=== PATIENT | female | born 1965 | race Caucasian/White ===

== ENCOUNTER → 2017-06-01 | Outpatient (CLI) | payer BC ==
[~2017-06-01] MED LIST: GLUCOPHAGE XR500 M1 PO; PERCOCET 325 MG1 TA2 PO; PHENERGAN 25 TA25 MG PO
== END ==
LOC: MC.RAD 13:51
DX: Z12.31 Encounter for screening mammogram for malignant neoplasm of breast (principal)

== ENCOUNTER 2017-10-01 15:02 | Emergency (ER) | payer BC ==
[~2017-10-01] VITALS: Ht 162.6 cm; Wt 109.1 kg
[2017-10-01 15:10] VITALS: TEMP 99.3
[2017-10-01 15:53] LABS: COLLECTION METHOD CLEAN CATCH
[2017-10-01 16:00] LABS: BASO % 0.3 % (0.0-2.0); EOS % 0.1 % (0-4.0); GRAN # 11.2 (1.4-6.5); GRAN % 81.1 % (42.2-75.2); HEMATOCRIT 48.3 % (37.0-47.0); HEMOGLOBIN 16.2 g/dl (12.5-16.0); LYMPH # 1.9 (1.2-3.4); LYMPH % 13.7 % (20.0-51.0); MEAN CELL VOLUME 88 fl (80.0-100.0); MEAN CORPUSCULAR HEMOGLOBIN 30 pg (27.0-31.0); MEAN CORPUSCULAR HGB CONC 34 g/dl (33.0-37.0); MEAN PLATELET VOLUME 9.7 fl (7.4-10.4); MONO # 0.6 (0.1-0.6); MONO % 4.4 % (1.7-9.3); PLATELET COUNT 394 K/mm3 (130-400); RED BLOOD COUNT 5.49 M/mm3 (4.10-5.30); WHITE BLOOD COUNT 13.7 K/mm3 (4.8-10.8)
[2017-10-01 16:10] LABS: ALBUMIN 4.7 gm/dL (3.5-5.0); BILIRUBIN,TOTAL 0.8 mg/dL (0.0-1.0); C-REACTIVE PROTEIN 0.7 mg/dL (0.0-0.9); CALCIUM 9.6 mg/dL (8.4-10.2); CREATININE, serum 0.8 mg/dL (0.52-1.25); POTASSIUM 3.6 mmol/L (3.4-5.0); TOTAL PROTEIN 7.9 gm/dL (6.4-8.2)
[2017-10-01 16:22] LABS: PH 5 (5-8); SQUAMOUS EPITHELIAL 0-2 /hpf; URINE APPEARANCE Clear; URINE BACTERIA Rare /hpf; URINE BILIRUBIN Negative (NEGATIVE); URINE BLOOD 2+ (NEGATIVE); URINE COLOR Yellow; URINE GLUCOSE Negative (NEGATIVE); URINE KETONE Negative (NEGATIVE); URINE LEUKOCYTE ESTERASE Negative (NEGATIVE); URINE PROTEIN(semi-quant) Negative (NEGATIVE); URINE RBC 0-2 /hpf; URINE UROBILINOGEN Negative (NEGATIVE); URINE WBC 0-2 /hpf
[2017-10-01] MEDS ORDERED: LEVAQUIN 5500 MG/TA1 PO ×2 (16:33→16:53)
[2017-10-01] MEDS ORDERED: ZOFRAN ODT4 MG PO (16:53)
[2017-10-01] MEDS ORDERED: FLAGYL500 MG PO (16:53)
[2017-10-01] MEDS ORDERED: PERCOCET 325 MG1 TA2 PO (16:53)
[2017-10-01 17:08] VITALS: BP 131/76; PULSE 84
== END 2017-10-01 17:09 | disposition home or self-care (01) ==
LOC: COL.ER 15:02
PROVIDERS: Nurse Practitioner
DX: R10.9 Unspecified abdominal pain (principal); Z90.710 Acquired absence of both cervix and uterus; Z87.448 Personal history of other diseases of urinary system
CPT/HCPCS: J1170; J2405; J7030

== ENCOUNTER → 2018-08-03 | Outpatient (CLI) | payer BC ==
[~2018-08-03] VITALS: Ht 157.5 cm; Wt 114.1 kg
[~2018-08-03] MED LIST changes: +FLAGYL500 MG PO; +LEVAQUIN 5500 MG/TA1 PO; +MOTRIN 800800 MG/TAB PO; +TYLENOL 500MG500 MG PO; +XIIDRA1 EACH OP; +ZANTAC 150MG T150 MG PO; +ZOFRAN ODT4 MG PO
[2018-08-03 16:31] VITALS: BP 134/94; PULSE 84
== END ==
LOC: LIGHT 09:14
DX: G47.33 Obstructive sleep apnea (adult) (pediatric) (principal); K21.9 Gastro-esophageal reflux disease without esophagitis; F41.1 Generalized anxiety disorder; E66.01 Morbid (severe) obesity due to excess calories; Z68.42 Body mass index [BMI] 45.0-49.9, adult; Z71.3 Dietary counseling and surveillance
CPT/HCPCS: G0463

== ENCOUNTER → 2018-08-07 | Outpatient (CLI) | payer BC | LOC: LIGHT 07:34 | DX: G47.33 Obstructive sleep apnea (adult) (pediatric) (principal); K21.9 Gastro-esophageal reflux disease without esophagitis; F41.9 Anxiety disorder, unspecified; E66.01 Morbid (severe) obesity due to excess calories; Z68.42 Body mass index [BMI] 45.0-49.9, adult; Z71.3 Dietary counseling and surveillance ==

== ENCOUNTER → 2018-08-23 | Outpatient (CLI) | payer BC | LOC: MC.RAD 12:51 | DX: Z12.31 Encounter for screening mammogram for malignant neoplasm of breast (principal) ==

== ENCOUNTER 2018-08-29 10:30 | Outpatient (RCR) | payer BC ==
[2018-09-07] MEDS ORDERED: GLUCOPHAGE XR500 M1 PO (16:08)
[2018-09-07] MEDS ORDERED: LEVAQUIN 5500 MG/TA1 PO (16:09)
[2018-09-07] MEDS ORDERED: CULTURELLE CAP1 EAC1 PO (16:11)
== END 2018-10-10 | disposition home or self-care (01) ==
LOC: WSPT
DX: M72.2 Plantar fascial fibromatosis (principal)

== ENCOUNTER → 2018-09-05 | Outpatient (CLI) | payer BC | LOC: LIGHT 09:57 | DX: G89.29 Other chronic pain (principal); K21.9 Gastro-esophageal reflux disease without esophagitis; F41.9 Anxiety disorder, unspecified; E66.01 Morbid (severe) obesity due to excess calories; Z68.42 Body mass index [BMI] 45.0-49.9, adult; Z71.3 Dietary counseling and surveillance ==

== ENCOUNTER → 2018-10-05 | Outpatient (CLI) | payer BC ==
[~2018-10-05] VITALS: Ht 157.5 cm; Wt 112.0 kg
[~2018-10-05] MED LIST changes: +CULTURELLE CAP1 EAC1 PO
[2018-10-05 16:48] VITALS: BP 122/86; PULSE 80
== END ==
LOC: LIGHT 10:29
DX: G47.33 Obstructive sleep apnea (adult) (pediatric) (principal); K21.9 Gastro-esophageal reflux disease without esophagitis; F41.1 Generalized anxiety disorder; E66.01 Morbid (severe) obesity due to excess calories; Z68.42 Body mass index [BMI] 45.0-49.9, adult; Z71.3 Dietary counseling and surveillance
CPT/HCPCS: G0463

== ENCOUNTER 2018-11-09 09:45 | Outpatient (RCR) | payer BC | END 2018-12-12 | disposition home or self-care (01) | LOC: WSPT | DX: M72.2 Plantar fascial fibromatosis (principal) ==

== ENCOUNTER → 2018-12-21 | Outpatient (CLI) | payer BC ==
[~2018-12-21] VITALS: Ht 157.5 cm; Wt 113.4 kg
[~2018-12-21] MED LIST changes: +PHENTERMINE15 MG PO
[2018-12-21 09:28] VITALS: BP 128/96; PULSE 64
== END ==
LOC: LIGHT 11-16 16:15
DX: G47.33 Obstructive sleep apnea (adult) (pediatric) (principal); K21.9 Gastro-esophageal reflux disease without esophagitis; F41.1 Generalized anxiety disorder; E66.01 Morbid (severe) obesity due to excess calories; Z68.42 Body mass index [BMI] 45.0-49.9, adult; Z71.3 Dietary counseling and surveillance
CPT/HCPCS: G0463

== ENCOUNTER → 2019-01-18 | Outpatient (CLI) | payer BC ==
[~2019-01-18] VITALS: Ht 157.5 cm; Wt 112.0 kg
[~2019-01-18] MED LIST changes: +BENTYL 10MG10 MG/CAP PO; +FASTIN30 MG PO; -PHENTERMINE15 MG PO
[2019-01-18 10:40] VITALS: BP 122/86; PULSE 60
== END ==
LOC: LIGHT 10:14
DX: G47.33 Obstructive sleep apnea (adult) (pediatric) (principal); K21.9 Gastro-esophageal reflux disease without esophagitis; F41.1 Generalized anxiety disorder; E66.01 Morbid (severe) obesity due to excess calories; Z68.45 Body mass index [BMI] 70 or greater, adult; Z71.3 Dietary counseling and surveillance
CPT/HCPCS: G0463

== ENCOUNTER → 2019-03-01 | Outpatient (CLI) | payer BC ==
[~2019-03-01] VITALS: Ht 157.5 cm; Wt 111.1 kg
[2019-03-01 10:31] VITALS: BP 110/80; PULSE 68
== END ==
LOC: LIGHT 10:26
DX: G47.33 Obstructive sleep apnea (adult) (pediatric) (principal); K21.9 Gastro-esophageal reflux disease without esophagitis; F41.1 Generalized anxiety disorder; E66.01 Morbid (severe) obesity due to excess calories; Z68.41 Body mass index [BMI] 40.0-44.9, adult; Z71.3 Dietary counseling and surveillance
CPT/HCPCS: G0463

== ENCOUNTER → 2019-04-05 | Outpatient (CLI) | payer BC ==
[~2019-04-05] VITALS: Ht 157.5 cm; Wt 110.0 kg
[2019-04-05 09:08] VITALS: BP 126/76; PULSE 60
== END ==
LOC: LIGHT 09:02
DX: G47.33 Obstructive sleep apnea (adult) (pediatric) (principal); K21.9 Gastro-esophageal reflux disease without esophagitis; F41.1 Generalized anxiety disorder; E66.01 Morbid (severe) obesity due to excess calories; Z68.42 Body mass index [BMI] 45.0-49.9, adult; Z71.3 Dietary counseling and surveillance
CPT/HCPCS: G0463

== ENCOUNTER → 2019-06-28 | Outpatient (CLI) | payer BC ==
[~2019-06-28] VITALS: Ht 157.5 cm; Wt 109.5 kg
[~2019-06-28] MED LIST changes: +RESTASIS MULTI5.5 ML OP
[2019-06-28 11:55] VITALS: BP 134/90; PULSE 64
== END ==
LOC: LIGHT 10:21
DX: G47.33 Obstructive sleep apnea (adult) (pediatric) (principal); K21.9 Gastro-esophageal reflux disease without esophagitis; F41.1 Generalized anxiety disorder; E66.01 Morbid (severe) obesity due to excess calories; Z68.41 Body mass index [BMI] 40.0-44.9, adult; Z71.3 Dietary counseling and surveillance
CPT/HCPCS: G0463

== ENCOUNTER → 2019-08-02 | Outpatient (CLI) | payer BC ==
[~2019-08-02] VITALS: Ht 157.5 cm; Wt 109.1 kg
[2019-08-02 16:54] VITALS: BP 136/86; PULSE 64
== END ==
LOC: LIGHT 13:24
DX: G47.33 Obstructive sleep apnea (adult) (pediatric) (principal); K21.9 Gastro-esophageal reflux disease without esophagitis; F41.1 Generalized anxiety disorder; E66.01 Morbid (severe) obesity due to excess calories; Z68.41 Body mass index [BMI] 40.0-44.9, adult; Z71.3 Dietary counseling and surveillance
CPT/HCPCS: G0463

== ENCOUNTER → 2019-09-28 | Outpatient (CLI) | payer BC, OTHER | LOC: MC.RAD 08-08 13:45 | DX: Z12.31 Encounter for screening mammogram for malignant neoplasm of breast (principal) ==

== ENCOUNTER → 2020-10-16 | Outpatient (CLI) | payer BC, OTHER | LOC: MC.RAD 09:30 | DX: Z12.31 Encounter for screening mammogram for malignant neoplasm of breast (principal) ==

== ENCOUNTER → 2021-12-02 | Outpatient (CLI) | payer BC, OTHER | LOC: MC.RAD 09:20 | DX: Z12.31 Encounter for screening mammogram for malignant neoplasm of breast (principal) ==

== ENCOUNTER → 2022-06-28 | Outpatient (CLI) | payer OTHER ==
[2022-06-28 12:39] LABS: BASO # 0.1 K/mm3 (0.0-0.2); BASO % 0.6 % (0.0-2.0); EOS # 0.1 K/mm3 (0.0-0.7); EOS % 0.8 % (0.0-4.0); GRAN # 7.6 K/mm3 (1.4-6.5); GRAN % 73.5 % (42.2-75.2); HEMATOCRIT 45.7 % (37.0-47.0); HEMOGLOBIN 15.6 g/dl (12.5-16.0); LYMPH # 1.8 K/mm3 (1.2-3.4); LYMPH % 17.5 % (20.0-51.0); MEAN CELL VOLUME 87 fl (80.0-100.0); MEAN CORPUSCULAR HEMOGLOBIN 30 pg (27-31); MEAN CORPUSCULAR HGB CONC 34 g/dl (33.0-37.0); MEAN PLATELET VOLUME 10.3 fl (7.4-10.4); MONO # 0.8 K/mm3 (0.1-0.6); MONO % 7.4 % (1.7-9.3); PLATELET COUNT 381 K/mm3 (130-400); RED BLOOD COUNT 5.25 M/mm3 (4.10-5.30); REDCELL DISTRIBUTION WIDTH-CV 13.8 % (11.5-14.5)
[2022-06-28 12:57] LABS: ALBUMIN 4.1 gm/dL (3.5-5.0); BILIRUBIN,TOTAL 1.2 mg/dL (0.2-1.2); CALCIUM 9.5 mg/dL (8.4-10.2); CREATININE, serum 0.86 mg/dL (0.57-1.11); POTASSIUM 3.7 mmol/L (3.5-4.5); TOTAL PROTEIN 6.9 gm/dL (6.2-8.1)
== END ==
LOC: COL.LAB 12:18
PROVIDERS: Surgery
DX: R10.13 Epigastric pain (principal); Z98.84 Bariatric surgery status

== ENCOUNTER → 2022-06-28 | Outpatient (CLI) | payer OTHER | LOC: COL.RAD 12:12 | DX: K57.90 Diverticulosis of intestine, part unspecified, without perforation or abscess without bleeding (principal); Z98.84 Bariatric surgery status; R10.13 Epigastric pain | CPT/HCPCS: Q9967 ==

== ENCOUNTER → 2023-02-16 | Outpatient (CLI) | payer OTHER | LOC: MC.RAD 13:46 | DX: Z12.31 Encounter for screening mammogram for malignant neoplasm of breast (principal) ==